=== PATIENT | female | born 1940 | race African-American/Black ===

== ENCOUNTER 2021-01-31 21:19 | Emergency (ER) | payer MEDICARE ==
[2021-01-31] MEDS ORDERED: Labetalol HCl 100 MG/20 ML VIAL ONE (23:06)
[2021-01-31 23:52] LABS: #Eosinphils 0.2 10x3/uL (0.0-0.5); #Monocytes 0.3 10x3/uL (0.0-1.1); #Neutrophils 2.9 10x3/uL (1.5-8.4); %Basophils 0.6 % (0.0-2.0); %Eosinophils 4.1 % (0.0-6.0); %Monocytes 6.2 % (0.0-10.0); %Neutrophils 55.9 % (40.0-75.0); Hemoglobin 10.5 g/dL (12.0-15.5); Mean Corpuscular HGB CONC 31.9 g/dL (32.0-36.0); Mean Corpuscular Hemoglobin 29.8 pg (27.0-33.0); Mean Corpuscular Volume 93.5 fl (81.6-98.3); Mean Platelet Volume 12.1 fl (7.4-10.4); Platelet Count 197 10x3/uL (150-450); RBC Distribution Width 13.8 % (11.5-14.5); Red Blood Cell (RBC) Count 3.52 10x6/uL (3.90-5.03); White Blood Cell (WBC) Count 5.2 10x3/uL (3.5-10.5)
[2021-02-01 00:02] LABS: ALT (SGPT) 24 U/L (8-55); AST (SGOT) 22 U/L (5-34); Albumin 3.5 g/dL (3.4-4.8); Alkaline Phosphatase 72 U/L (40-110); Anion Gap 12 mmol/L (10-20); BUN (Urea Nitrogen) 32 mg/dL (9.8-20.1); Bilirubin, Total 0.4 mg/dL (0.2-1.2); Calc. Creatinine Clearance 0 mL/min (70-130); Calcium 8.8 mg/dL (7.8-10.44); Carbon Dioxide 26 mmol/L (23-31); Chloride 106 mmol/L (98-107); Globulin 3.2 g/dL (2.4-3.5); Glucose 241 mg/dL (83-110); Potassium 3.6 mmol/L (3.5-5.1); Protein, Total 6.7 g/dL (5.8-8.1); Sodium 140 mmol/L (136-145)
[2021-02-01] MEDS ORDERED: hydrALAZINE 20 MG/ML VIAL ONE ×2 (01:06→01:07)
== END 2021-02-01 02:00 | disposition home or self-care (01) ==
LOC: CSHERS 21:19
DX: I10 Essential (primary) hypertension (principal); E11.9 Type 2 diabetes mellitus without complications; Z79.899 Other long term (current) drug therapy
CPT/HCPCS: 80053; 84484; 85025; 96374; 96375; J0360

== ENCOUNTER 2021-10-17 08:29 | Emergency (ER) | payer MEDICARE ==
[2021-10-17] MEDS ORDERED: predniSONE 20 MG TAB ONE (09:39)
[2021-10-17] MEDS ORDERED: Acetaminophen/Codeine 30-300mg Tablet ONE (09:39)
== END 2021-10-17 09:48 | disposition home or self-care (01) ==
LOC: CSHERS 08:29
DX: M10.9 Gout, unspecified (principal); I10 Essential (primary) hypertension; E11.9 Type 2 diabetes mellitus without complications
CPT/HCPCS: 99283; J7512

== ENCOUNTER 2021-11-08 16:47 | Emergency (ER) | payer MEDICARE ==
[2021-11-08 18:40] LABS: #Eosinphils 0.3 10x3/uL (0.0-0.5); #Monocytes 0.5 10x3/uL (0.0-1.1); #Neutrophils 3.4 10x3/uL (1.5-8.4); %Basophils 0.5 % (0.0-2.0); %Eosinophils 4.1 % (0.0-6.0); %Lymphocytes 32.1 % (18.0-47.0); %Monocytes 7.7 % (0.0-10.0); %Neutrophils 55.3 % (40.0-75.0); Hemoglobin 10.3 g/dL (12.0-15.5); Mean Corpuscular HGB CONC 30.9 g/dL (32.0-36.0); Mean Corpuscular Hemoglobin 29.9 pg (27.0-33.0); Mean Corpuscular Volume 96.8 fl (81.6-98.3); Mean Platelet Volume 12.1 fl (7.4-10.4); Platelet Count 206 10x3/uL (150-450); RBC Distribution Width 13.9 % (11.5-14.5); Red Blood Cell (RBC) Count 3.44 10x6/uL (3.90-5.03); White Blood Cell (WBC) Count 6.1 10x3/uL (3.5-10.5)
[2021-11-08 18:52] LABS: ALT (SGPT) 25 U/L (8-55); AST (SGOT) 19 U/L (5-34); Albumin 3.4 g/dL (3.4-4.8); Alkaline Phosphatase 76 U/L (40-110); Anion Gap 11 mmol/L (10-20); BUN (Urea Nitrogen) 24 mg/dL (9.8-20.1); Bilirubin, Total 0.3 mg/dL (0.2-1.2); Calc. Creatinine Clearance 0 mL/min (70-130); Calcium 8.8 mg/dL (7.8-10.44); Carbon Dioxide 24 mmol/L (23-31); Chloride 108 mmol/L (98-107); Globulin 3.9 g/dL (2.4-3.5); Glucose 166 mg/dL (83-110); Potassium 3.6 mmol/L (3.5-5.1); Protein, Total 7.3 g/dL (5.8-8.1); Sodium 139 mmol/L (136-145)
[2021-11-08] MEDS ORDERED: Metoclopramide HCl 10 MG/2 ML VIAL ONE (20:18)
[2021-11-08] MEDS ORDERED: diphenhydrAMINE 50 MG/ML VIAL ONE (20:19)
== END 2021-11-08 22:04 | disposition home or self-care (01) ==
LOC: CSHERS 16:47
DX: R51.9 Headache, unspecified (principal); I10 Essential (primary) hypertension; E11.9 Type 2 diabetes mellitus without complications
CPT/HCPCS: 70450; 80053; 85025; 93005; 96365; 96366; 96375; J1200; J2765

== ENCOUNTER 2022-01-25 12:43 | Emergency (ER) | payer MEDICARE, OTHER | END 2022-01-25 15:40 | disposition home or self-care (01) | LOC: CSHERS 12:43 | DX: S43.032A Inferior subluxation of left humerus, initial encounter (principal); S90.411A Abrasion, right great toe, initial encounter; S90.415A Abrasion, left lesser toe(s), initial encounter; M10.9 Gout, unspecified; I12.9 Hypertensive chronic kidney disease with stage 1 through stage 4 chronic kidney disease, or unspecified chronic kidney disease; E11.22 Type 2 diabetes mellitus with diabetic chronic kidney disease; N18.9 Chronic kidney disease, unspecified; E78.5 Hyperlipidemia, unspecified; E78.00 Pure hypercholesterolemia, unspecified; W01.0XXA Fall on same level from slipping, tripping and stumbling without subsequent striking against object, initial encounter | CPT/HCPCS: 36416 ==

== ENCOUNTER 2022-02-02 18:56 | Emergency (ER) | payer MEDICARE ==
[2022-02-02 22:02] LABS: #Eosinphils 0.3 10x3/uL (0.0-0.5); #Monocytes 0.5 10x3/uL (0.0-1.1); %Basophils 0.5 % (0.0-2.0); %Eosinophils 4.4 % (0.0-6.0); %Neutrophils 52.1 % (40.0-75.0); Hemoglobin 10.3 g/dL (12.0-15.5); Mean Corpuscular HGB CONC 31.2 g/dL (32.0-36.0); Mean Corpuscular Hemoglobin 29.8 pg (27.0-33.0); Mean Corpuscular Volume 95.4 fl (81.6-98.3); Mean Platelet Volume 11.6 fl (7.4-10.4); Platelet Count 227 10x3/uL (150-450); RBC Distribution Width 13.6 % (11.5-14.5); Red Blood Cell (RBC) Count 3.46 10x6/uL (3.90-5.03); White Blood Cell (WBC) Count 5.7 10x3/uL (3.5-10.5)
[2022-02-02 22:14] LABS: ALT (SGPT) 20 U/L (8-55); AST (SGOT) 16 U/L (5-34); Albumin 3.2 g/dL (3.4-4.8); Alkaline Phosphatase 78 U/L (40-110); Anion Gap 11 mmol/L (10-20); BUN (Urea Nitrogen) 28 mg/dL (9.8-20.1); Bilirubin, Total 0.3 mg/dL (0.2-1.2); Calc. Creatinine Clearance 0 mL/min (70-130); Calcium 8.7 mg/dL (7.8-10.44); Carbon Dioxide 26 mmol/L (23-31); Chloride 105 mmol/L (98-107); Globulin 3.9 g/dL (2.4-3.5); Glucose 240 mg/dL (83-110); Potassium 3.8 mmol/L (3.5-5.1); Protein, Total 7.1 g/dL (5.8-8.1); Sodium 138 mmol/L (136-145)
== END 2022-02-02 20:28 | disposition home or self-care (01) ==
LOC: CSHERS 18:56
DX: R05.9 Cough, unspecified (principal); I12.9 Hypertensive chronic kidney disease with stage 1 through stage 4 chronic kidney disease, or unspecified chronic kidney disease; N18.9 Chronic kidney disease, unspecified; E11.9 Type 2 diabetes mellitus without complications; E78.5 Hyperlipidemia, unspecified; M10.9 Gout, unspecified
CPT/HCPCS: 36415; 71045; 80053; 83880; 84484; 85025; 93005

== ENCOUNTER 2022-04-15 16:40 | Emergency (ER) | payer MEDICARE ==
[2022-04-15] MEDS ORDERED: Ibuprofen 200 MG TAB ONE (17:32)
== END 2022-04-15 18:11 | disposition home or self-care (01) ==
LOC: CSHERS 16:40
DX: J02.9 Acute pharyngitis, unspecified (principal)
CPT/HCPCS: 71045; 93005; J7620

== ENCOUNTER 2022-04-19 08:03 | Inpatient (IN) | payer MEDICARE, OTHER ==
[2022-04-19 08:59] LABS: #Eosinphils 0.2 10x3/uL (0.0-0.5); #Monocytes 0.5 10x3/uL (0.0-1.1); #Neutrophils 9.4 10x3/uL (1.5-8.4); %Basophils 0.4 % (0.0-2.0); %Lymphocytes 10.4 % (18.0-47.0); %Neutrophils 82.9 % (40.0-75.0); Hemoglobin 10.3 g/dL (12.0-15.5); Mean Corpuscular HGB CONC 32.3 g/dL (32.0-36.0); Mean Corpuscular Hemoglobin 30.3 pg (27.0-33.0); Mean Corpuscular Volume 93.8 fl (81.6-98.3); Mean Platelet Volume 11.8 fl (7.4-10.4); Platelet Count 220 10x3/uL (150-450); RBC Distribution Width 13.5 % (11.5-14.5); White Blood Cell (WBC) Count 11.3 10x3/uL (3.5-10.5)
[2022-04-19 09:17] LABS: ALT (SGPT) 21 U/L (8-55); AST (SGOT) 21 U/L (5-34); Albumin 3.4 g/dL (3.4-4.8); Alkaline Phosphatase 91 U/L (40-110); Anion Gap 17 mmol/L (10-20); BUN (Urea Nitrogen) 26 mg/dL (9.8-20.1); Bilirubin, Total 0.4 mg/dL (0.2-1.2); CK (CPK) 313 U/L (29-168); Calc. Creatinine Clearance 0 mL/min (70-130); Calcium 8.5 mg/dL (7.8-10.44); Carbon Dioxide 23 mmol/L (23-31); Chloride 103 mmol/L (98-107); Globulin 3.8 g/dL (2.4-3.5); Glucose 322 mg/dL (83-110); Potassium 3.8 mmol/L (3.5-5.1); Protein, Total 7.2 g/dL (5.8-8.1); Sodium 139 mmol/L (136-145)
[2022-04-19] MEDS ORDERED: cefTRIAXone\\ROCEPHIN 1 GM VIAL ONE (09:31)
[2022-04-19] MEDS ORDERED: Azithromycin 500 MG VIAL ONE (09:31)
[2022-04-19] MEDS ORDERED: Dextrose 5% in Water 1,000 ML IV PRN (10:05)
[2022-04-19] MEDS ORDERED: Dextrose 50% Abboject 50 ML SYRINGE SLOW IVP PRN (10:05)
[2022-04-19] MEDS ORDERED: GUAIFENESIN SF SOLN 200 MG/10 ML UDCUP PO PRN (10:20)
[2022-04-19 11:07] LABS: SARS-CoV-2 NAA Rapid Test Not Detected (NotDetected)
[2022-04-19 11:48] LABS: Hemoglobin A1c 9.4 % (4.0-6.0)
[2022-04-19] MEDS ORDERED: hydrALAZINE 20 MG/ML VIAL SLOW IVP PRN (15:27)
[2022-04-19] MEDS: Sodium Chloride 0.9% 1,000 ML IV SCH (16:02)
[2022-04-19] MEDS: Acetaminophen 325 MG TAB PO PRN (16:02)
[2022-04-19] MEDS: HumaLOG 300 UNITS/3 ML VIAL SC PRN ×2 (16:03→21:37)
[2022-04-19] MEDS: Benzonatate 100 MG CAP PO PRN (16:04)
[2022-04-19 18:28] LABS: Troponin I 0.014 ng/mL (< 0.028)
[2022-04-19] MEDS: hydrALAZINE 25 MG TAB PO SCH (21:36)
[2022-04-19] MEDS: NIFEdipine XL 60 MG TAB PO SCH (21:36)
[2022-04-19] MEDS: Heparin 5,000 UNITS/ML VIAL SC SCH (21:36)
[2022-04-19] MEDS: Atorvastatin Calcium 10 MG TAB PO SCH (21:36)
[2022-04-20 01:09] LABS: Bilirubin Neg (Negative); Blood, Urine 50 (Negative); Clarity Clear (Clear); Glucose, Urine (Dipstick) 50 mg/dL (Negative); Ketone, Urine Negative (Negative); Leukocyte Negative (Negative); Nitrite Negative (Negative); Protein, Urine (Dipstick) 100 mg/dl (Neg-Trace); Urobilinogen Normal mg/dL (Less than 2)
[2022-04-20 01:12] LABS: Urine Culture Reflex No No
[2022-04-20 01:17] LABS: Bacteria/HPF None Seen HPF (None Seen); Squamous Epithelial 0-3 HPF (0-3); WBC/HPF 0-3 HPF (0-3)
[2022-04-20 05:19] LABS: #Eosinphils 0.2 10x3/uL (0.0-0.5); #Monocytes 0.4 10x3/uL (0.0-1.1); #Neutrophils 7.1 10x3/uL (1.5-8.4); %Basophils 0.3 % (0.0-2.0); %Eosinophils 2.1 % (0.0-6.0); %Lymphocytes 18.5 % (18.0-47.0); %Monocytes 4.4 % (0.0-10.0); %Neutrophils 74.4 % (40.0-75.0); Hemoglobin 9.9 g/dL (12.0-15.5); Mean Corpuscular HGB CONC 32.7 g/dL (32.0-36.0); Mean Corpuscular Hemoglobin 30.4 pg (27.0-33.0); Mean Corpuscular Volume 92.9 fl (81.6-98.3); Mean Platelet Volume 11.5 fl (7.4-10.4); Platelet Count 192 10x3/uL (150-450); RBC Distribution Width 13.7 % (11.5-14.5); Red Blood Cell (RBC) Count 3.26 10x6/uL (3.90-5.03); White Blood Cell (WBC) Count 9.6 10x3/uL (3.5-10.5)
[2022-04-20 05:37] LABS: Anion Gap 13 mmol/L (10-20); BUN (Urea Nitrogen) 18 mg/dL (9.8-20.1); Calc. Creatinine Clearance 0 mL/min (70-130); Calcium 8.4 mg/dL (7.8-10.44); Carbon Dioxide 22 mmol/L (23-31); Chloride 106 mmol/L (98-107); Glucose 212 mg/dL (83-110); Potassium 3.2 mmol/L (3.5-5.1); Sodium 138 mmol/L (136-145)
[2022-04-20] MEDS: HumaLOG 300 UNITS/3 ML VIAL SC PRN ×3 (06:06→21:24)
[2022-04-20] MEDS ORDERED: Potassium Chloride 20 MEQ TAB PO SCH (07:45)
[2022-04-20] MEDS: Acetaminophen 325 MG TAB PO PRN ×2 (08:24→21:37)
[2022-04-20] MEDS: Benzonatate 100 MG CAP PO PRN (08:24)
[2022-04-20] MEDS: Sodium Chloride 0.9% 1,000 ML IV SCH (08:24)
[2022-04-20] MEDS: Heparin 5,000 UNITS/ML VIAL SC SCH ×2 (08:24→21:22)
[2022-04-20] MEDS: Calcitriol 0.25 MCG CAP PO SCH (08:24)
[2022-04-20] MEDS: hydrALAZINE 25 MG TAB PO SCH ×2 (08:24→21:21)
[2022-04-20] MEDS: cefTRIAXone\\ROCEPHIN 1 GM in Sodium Chloride 0.9% 100 ML IVPB SCH (08:31)
[2022-04-20] MEDS ORDERED: Sodium Chloride 0.9% 250 ML 250 ML ONE ×2 (09:21)
[2022-04-20] MEDS: Azithromycin 500 MG in Sodium Chloride 0.9% 250 ML 250 ML IVPB SCH (09:44)
[2022-04-20] MEDS: NIFEdipine XL 60 MG TAB PO SCH (21:21)
[2022-04-20] MEDS: HumuLIN 70/30 (300 UNITS/3 ML VIAL) SC SCH (21:22)
[2022-04-20] MEDS: Atorvastatin Calcium 10 MG TAB PO SCH (21:22)
[2022-04-20] MEDS ORDERED: guaiFENesin 100 MG/5 ML UDCUP PO PRN (21:42)
[2022-04-21 04:29] LABS: #Eosinphils 0.3 10x3/uL (0.0-0.5); #Monocytes 0.4 10x3/uL (0.0-1.1); #Neutrophils 5.6 10x3/uL (1.5-8.4); %Basophils 0.5 % (0.0-2.0); %Eosinophils 4.2 % (0.0-6.0); %Lymphocytes 21.3 % (18.0-47.0); %Monocytes 5.3 % (0.0-10.0); %Neutrophils 68.1 % (40.0-75.0); Hemoglobin 9.6 g/dL (12.0-15.5); Mean Corpuscular HGB CONC 31.9 g/dL (32.0-36.0); Mean Corpuscular Volume 94.1 fl (81.6-98.3); Mean Platelet Volume 11.5 fl (7.4-10.4); Platelet Count 223 10x3/uL (150-450); RBC Distribution Width 13.7 % (11.5-14.5); White Blood Cell (WBC) Count 8.1 10x3/uL (3.5-10.5)
[2022-04-21 04:56] LABS: Anion Gap 13 mmol/L (10-20); BUN (Urea Nitrogen) 16 mg/dL (9.8-20.1); Calc. Creatinine Clearance 34 mL/min (70-130); Calcium 8.4 mg/dL (7.8-10.44); Carbon Dioxide 24 mmol/L (23-31); Chloride 110 mmol/L (98-107); Glucose 96 mg/dL (83-110); Potassium 3.7 mmol/L (3.5-5.1); Sodium 143 mmol/L (136-145)
[2022-04-21] MEDS ORDERED: Artificial Tear Sol 15 ML BOT EA EYE PRN (05:19)
[2022-04-21] MEDS ORDERED: cefTRIAXone\\ROCEPHIN 1 GM VIAL ONE (08:55)
[2022-04-21] MEDS: Calcitriol 0.25 MCG CAP PO SCH (09:07)
[2022-04-21] MEDS: Heparin 5,000 UNITS/ML VIAL SC SCH ×2 (09:07→22:13)
[2022-04-21] MEDS: HumuLIN 70/30 (300 UNITS/3 ML VIAL) SC SCH ×2 (09:07→22:14)
[2022-04-21] MEDS: hydrALAZINE 25 MG TAB PO SCH ×2 (09:07→22:13)
[2022-04-21] MEDS: Benzonatate 100 MG CAP PO PRN (09:07)
[2022-04-21] MEDS: cefTRIAXone\\ROCEPHIN 1 GM in Sodium Chloride 0.9% 100 ML IVPB SCH (09:08)
[2022-04-21] MEDS: Azithromycin 500 MG in Sodium Chloride 0.9% 250 ML 250 ML IVPB SCH (10:30)
[2022-04-21] MEDS: HumaLOG 300 UNITS/3 ML VIAL SC PRN (12:29)
[2022-04-21] MEDS: NIFEdipine XL 60 MG TAB PO SCH (22:12)
[2022-04-21] MEDS: Atorvastatin Calcium 10 MG TAB PO SCH (22:13)
[2022-04-22 04:40] LABS: #Eosinphils 0.3 10x3/uL (0.0-0.5); #Monocytes 0.4 10x3/uL (0.0-1.1); #Neutrophils 4.8 10x3/uL (1.5-8.4); %Basophils 0.4 % (0.0-2.0); %Eosinophils 4.3 % (0.0-6.0); %Lymphocytes 24.7 % (18.0-47.0); %Monocytes 5.2 % (0.0-10.0); %Neutrophils 65.1 % (40.0-75.0); Hemoglobin 9.9 g/dL (12.0-15.5); Mean Corpuscular Hemoglobin 30.4 pg (27.0-33.0); Mean Corpuscular Volume 94.8 fl (81.6-98.3); Mean Platelet Volume 11.6 fl (7.4-10.4); Platelet Count 235 10x3/uL (150-450); RBC Distribution Width 13.8 % (11.5-14.5); Red Blood Cell (RBC) Count 3.26 10x6/uL (3.90-5.03); White Blood Cell (WBC) Count 7.4 10x3/uL (3.5-10.5)
[2022-04-22 04:51] LABS: Anion Gap 14 mmol/L (10-20); BUN (Urea Nitrogen) 14 mg/dL (9.8-20.1); Calc. Creatinine Clearance 33 mL/min (70-130); Carbon Dioxide 23 mmol/L (23-31); Chloride 106 mmol/L (98-107); Glucose 163 mg/dL (83-110); Potassium 3.7 mmol/L (3.5-5.1); Sodium 139 mmol/L (136-145)
[2022-04-22] MEDS: hydrALAZINE 25 MG TAB PO SCH (08:43)
[2022-04-22] MEDS: Heparin 5,000 UNITS/ML VIAL SC SCH (08:43)
[2022-04-22] MEDS: Calcitriol 0.25 MCG CAP PO SCH (08:43)
[2022-04-22] MEDS: HumuLIN 70/30 (300 UNITS/3 ML VIAL) SC SCH (08:43)
[2022-04-22] MEDS: cefTRIAXone\\ROCEPHIN 1 GM in Sodium Chloride 0.9% 100 ML IVPB SCH (08:43)
[2022-04-22] MEDS ORDERED: hydrALAZINE 25 MG TAB PO SCH ×2 (10:00→15:00)
[2022-04-22] MEDS: Azithromycin 500 MG in Sodium Chloride 0.9% 250 ML 250 ML IVPB SCH (10:35)
[2022-04-22 11:50] VITALS: BP 137/70; TEMP 97
[2022-04-22] MEDS: HumaLOG 300 UNITS/3 ML VIAL SC PRN (11:55)
== END 2022-04-22 14:06 | disposition home or self-care (01) | DRG 871 ==
LOC: CSHERS 08:03 → CSHTELE 13:02 → OBSVTOIN 14:46
PROVIDERS: ADMIT Family Medicine; ATTEND Physician Assistant Medical
DX: A41.9 Sepsis, unspecified organism (principal); J18.9 Pneumonia, unspecified organism; Z20.822 Contact with and (suspected) exposure to COVID-19; E11.22 Type 2 diabetes mellitus with diabetic chronic kidney disease; I12.9 Hypertensive chronic kidney disease with stage 1 through stage 4 chronic kidney disease, or unspecified chronic kidney disease; E11.65 Type 2 diabetes mellitus with hyperglycemia; D63.1 Anemia in chronic kidney disease; E78.5 Hyperlipidemia, unspecified; E87.6 Hypokalemia; N18.30 Chronic kidney disease, stage 3 unspecified; E78.00 Pure hypercholesterolemia, unspecified; M10.9 Gout, unspecified; Z88.0 Allergy status to penicillin; Z79.899 Other long term (current) drug therapy; Z79.4 Long term (current) use of insulin
CPT/HCPCS: 36415; 36416; 71045; 80048; 80053; 81001; 82550; 83036; 83605; 83880; 84484; 85025; 87040; 87070; 87205; 87804; 93005; 94760; 94799; 96365; 96375; G0378; J0360; J0456; J0696; J1644; J1815; J3490; J7050; U0002

== ENCOUNTER 2022-07-26 00:39 | Emergency (ER) | payer OTHER ==
[2022-07-26] MEDS ORDERED: Dextrose 50% Abboject 50 ML SYRINGE ONE ×2 (00:47)
[2022-07-26 01:26] LABS: #Eosinphils 0.5 10x3/uL (0.0-0.5); #Monocytes 0.7 10x3/uL (0.0-1.1); #Neutrophils 4.3 10x3/uL (1.5-8.4); %Basophils 0.3 % (0.0-2.0); %Eosinophils 6.4 % (0.0-6.0); %Lymphocytes 30.6 % (18.0-47.0); %Monocytes 8.7 % (0.0-10.0); %Neutrophils 53.7 % (40.0-75.0); Mean Corpuscular HGB CONC 32.2 g/dL (32.0-36.0); Mean Corpuscular Hemoglobin 30.2 pg (27.0-33.0); Mean Platelet Volume 11.5 fl (7.4-10.4); Platelet Count 238 10x3/uL (150-450); RBC Distribution Width 14.9 % (11.5-14.5); Red Blood Cell (RBC) Count 3.64 10x6/uL (3.90-5.03)
[2022-07-26 01:33] LABS: ALT (SGPT) 24 U/L (8-55); AST (SGOT) 29 U/L (5-34); Albumin 3.9 g/dL (3.4-4.8); Alkaline Phosphatase 157 U/L (40-110); Anion Gap 17 mmol/L (10-20); BUN (Urea Nitrogen) 29 mg/dL (9.8-20.1); Bilirubin, Total 0.7 mg/dL (0.2-1.2); Calc. Creatinine Clearance 0 mL/min (70-130); Calcium 9.7 mg/dL (7.8-10.44); Carbon Dioxide 19 mmol/L (23-31); Chloride 110 mmol/L (98-107); Estimated GFR 21; Globulin 4.2 g/dL (2.4-3.5); Protein, Total 8.1 g/dL (5.8-8.1); Sodium 142 mmol/L (136-145)
[2022-07-26 01:42] LABS: Glucose 23 mg/dL (83-110)
== END 2022-07-26 02:10 | disposition home or self-care (01) ==
LOC: CSHERS 00:39
DX: E11.649 Type 2 diabetes mellitus with hypoglycemia without coma (principal); E78.00 Pure hypercholesterolemia, unspecified; I12.9 Hypertensive chronic kidney disease with stage 1 through stage 4 chronic kidney disease, or unspecified chronic kidney disease; N18.9 Chronic kidney disease, unspecified; M10.9 Gout, unspecified; Z79.82 Long term (current) use of aspirin; Z79.899 Other long term (current) drug therapy
CPT/HCPCS: 36416; 80053; 85025; 93005; 94760; 96361; 96374; J7999

== ENCOUNTER 2023-02-13 01:09 | Emergency (ER) | payer MEDICARE, OTHER | END 2023-02-13 01:39 | disposition home or self-care (01) | LOC: CSHERS 01:09 | DX: Z76.0 Encounter for issue of repeat prescription (principal); E78.5 Hyperlipidemia, unspecified; E11.22 Type 2 diabetes mellitus with diabetic chronic kidney disease; N18.9 Chronic kidney disease, unspecified; I12.9 Hypertensive chronic kidney disease with stage 1 through stage 4 chronic kidney disease, or unspecified chronic kidney disease; Z79.82 Long term (current) use of aspirin; Z79.899 Other long term (current) drug therapy | CPT/HCPCS: 36416; 99281 ==

== ENCOUNTER 2024-06-11 08:13 | Inpatient (IN) | payer MEDICARE, SELFPAY ==
[2024-06-11] MEDS ORDERED: Acetaminophen 500 MG TAB ONE (09:28)
[2024-06-11 10:05] LABS: #Basophils 0.01 10x3/uL (0.0-0.2); #Eosinphils 0.29 10x3/uL (0.0-0.5); #Monocytes 0.47 10x3/uL (0.0-1.1); #Neutrophils 9.86 10x3/uL (1.5-8.4); %Basophils 0.1 % (0.0-2.0); %Eosinophils 2.6 % (0.0-6.0); %Lymphocytes 5.1 % (18.0-47.0); %Monocytes 4.2 % (0.0-10.0); %Neutrophils 87.7 % (40.0-75.0); ALT (SGPT) 42 U/L (8-55); AST (SGOT) 49 U/L (5-34); Albumin 3.3 g/dL (3.4-4.8); Alkaline Phosphatase 82 U/L (40-110); Anion Gap 14 mmol/L (10-20); BUN (Urea Nitrogen) 38 mg/dL (9.8-20.1); Bilirubin, Total 0.6 mg/dL (0.2-1.2); Calc. Creatinine Clearance 0 mL/min (70-130); Calcium 9.3 mg/dL (7.8-10.44); Carbon Dioxide 20 mmol/L (23-31); Chloride 109 mmol/L (98-107); Estimated GFR 16; Globulin 4.1 g/dL (2.4-3.5); Glucose 237 mg/dL (83-110); Hematocrit 35.6 % (34.9-44.5); Hemoglobin 11.5 g/dL (12.0-15.5); Magnesium 1.7 mg/dL (1.6-2.6); Mean Corpuscular HGB CONC 32.3 g/dL (32.0-36.0); Mean Corpuscular Hemoglobin 29.9 pg (27.0-33.0); Mean Corpuscular Volume 92.5 fL (81.6-98.3); Mean Platelet Volume 12.2 fL (7.4-10.4); Platelet Count 233 10x3/uL (150-450); Potassium 4.9 mmol/L (3.5-5.1); Protein, Total 7.4 g/dL (5.8-8.1); RBC Distribution Width 14.7 % (11.5-14.5); Red Blood Cell (RBC) Count 3.85 10x6/uL (3.90-5.03); Sodium 138 mmol/L (136-145); White Blood Cell (WBC) Count 11.2 10x3/uL (3.5-10.5)
[2024-06-11] MEDS ORDERED: Loperamide HCl 2 MG CAP PO PRN (11:22)
[2024-06-11] MEDS ORDERED: Acetaminophen 325 MG TAB PO PRN (11:22)
[2024-06-11] MEDS ORDERED: Senokot S 8.6-50 MG TAB PO PRN (11:22)
[2024-06-11] MEDS ORDERED: Dextrose 50% Abboject 50 ML SYRINGE SLOW IVP PRN (11:41)
[2024-06-11] MEDS ORDERED: Glucagon 1 MG/ML KIT IM PRN (11:41)
[2024-06-11] MEDS ORDERED: Dextrose 5% in Water 1,000 ML IV PRN (11:41)
[2024-06-11] MEDS: Sodium Chloride 0.9% 1,000 ML IV SCH (13:21)
[2024-06-11 13:48] LABS: Influenza A by NAA Not Detected (NotDetected); Influenza B by NAA Not Detected (NotDetected); RSV by NAA Not Detected (NotDetected); SARS-CoV-2 NAA Rapid Test Not Detected (NotDetected)
[2024-06-11] MEDS: HumaLOG 300 UNITS/3 ML VIAL SC PRN (13:53)
[2024-06-11] MEDS: HYDROcodone/Acetaminophen 5/325 mg Tablet PO PRN (13:53)
[2024-06-11] MEDS: Famotidine 20 MG TAB PO SCH (20:25)
[2024-06-12] MEDS: traMADol HCl 50 MG TAB PO PRN (00:04)
[2024-06-12 05:04] LABS: #Eosinphils 0.14 10x3/uL (0.0-0.5); #Monocytes 0.42 10x3/uL (0.0-1.1); #Neutrophils 3.71 10x3/uL (1.5-8.4); %Eosinophils 2.8 % (0.0-6.0); %Lymphocytes 15.6 % (18.0-47.0); %Monocytes 8.3 % (0.0-10.0); %Neutrophils 73.1 % (40.0-75.0); Hematocrit 28.9 % (34.9-44.5); Hemoglobin 9.4 g/dL (12.0-15.5); Mean Corpuscular HGB CONC 32.5 g/dL (32.0-36.0); Mean Corpuscular Volume 92.3 fL (81.6-98.3); Platelet Count 204 10x3/uL (150-450); RBC Distribution Width 14.8 % (11.5-14.5); Red Blood Cell (RBC) Count 3.13 10x6/uL (3.90-5.03); White Blood Cell (WBC) Count 5.1 10x3/uL (3.5-10.5)
[2024-06-12 05:06] VITALS: BMI 32.2
[2024-06-12 05:08] LABS: Bilirubin Neg (Negative); Blood, Urine Negative (Negative); Clarity Clear (Clear); Glucose, Urine (Dipstick) Normal (Negative); Ketone, Urine Negative (Negative); Leukocyte 25 (Negative); Nitrite Negative (Negative); Protein, Urine (Dipstick) 100 mg/dl (Neg-Trace); Urobilinogen Normal mg/dL (Less than 2)
[2024-06-12 05:23] LABS: CAUTI Indications for Culture Alt mental st,lethar; RBC/HPF None Seen HPF (0-3)
[2024-06-12 05:24] LABS: Bacteria/HPF 4+ HPF (None Seen); Squamous Epithelial 0-3 HPF (0-3)
[2024-06-12 05:25] LABS: Urine Culture Reflex No No
[2024-06-12 05:53] LABS: ALT (SGPT) 25 U/L (8-55); AST (SGOT) 23 U/L (5-34); Albumin 2.7 g/dL (3.4-4.8); Alkaline Phosphatase 64 U/L (40-110); Anion Gap 11 mmol/L (10-20); BUN (Urea Nitrogen) 33 mg/dL (9.8-20.1); Bilirubin, Total 0.6 mg/dL (0.2-1.2); Calc. Creatinine Clearance 24 mL/min (70-130); Calcium 7.9 mg/dL (7.8-10.44); Carbon Dioxide 18 mmol/L (23-31); Chloride 111 mmol/L (98-107); Estimated GFR 21; Globulin 3.4 g/dL (2.4-3.5); Glucose 140 mg/dL (83-110); Potassium 4.1 mmol/L (3.5-5.1); Protein, Total 6.1 g/dL (5.8-8.1); Sodium 136 mmol/L (136-145)
[2024-06-12] MEDS: Magnesium 2 GM/50 ML(in water) 2 GM in Premix 1 BAG IVPB SCH (09:34)
[2024-06-12] MEDS ORDERED: Nitroglycerin 0.4 MG TAB (25 Tab Bottle) SL PRN (16:55)
[2024-06-12] MEDS ORDERED: Atropine Sulfate 1 mg/1 ml Vial IVP PRN (16:57)
[2024-06-12] MEDS ORDERED: hydrALAZINE 20 MG/ML VIAL SLOW IVP PRN (19:39)
[2024-06-12] MEDS: Saccharomyces boulardii 250 MG CAP PO SCH (21:00)
[2024-06-12] MEDS: Gabapentin 300 MG CAP PO SCH (21:53)
[2024-06-12] MEDS: NIFEdipine XL 30 MG ER.TAB PO SCH (21:53)
[2024-06-12] MEDS: Acetaminophen 325 MG TAB PO SCH (21:54)
[2024-06-12] MEDS: Heparin 5,000 UNITS/ML VIAL SC SCH (21:54)
[2024-06-12] MEDS: Ciprofloxacin 500 MG TAB PO SCH (22:16)
[2024-06-13 04:09] LABS: #Basophils 0.01 10x3/uL (0.0-0.2); #Eosinphils 0.18 10x3/uL (0.0-0.5); #Monocytes 0.51 10x3/uL (0.0-1.1); #Neutrophils 1.95 10x3/uL (1.5-8.4); %Basophils 0.2 % (0.0-2.0); %Eosinophils 4.3 % (0.0-6.0); %Lymphocytes 36.8 % (18.0-47.0); %Monocytes 12.1 % (0.0-10.0); %Neutrophils 46.4 % (40.0-75.0); Hemoglobin 9.4 g/dL (12.0-15.5); Mean Corpuscular HGB CONC 33.6 g/dL (32.0-36.0); Mean Corpuscular Hemoglobin 30.8 pg (27.0-33.0); Mean Corpuscular Volume 91.8 fL (81.6-98.3); Mean Platelet Volume 12.1 fL (7.4-10.4); Platelet Count 189 10x3/uL (150-450); RBC Distribution Width 14.7 % (11.5-14.5); Red Blood Cell (RBC) Count 3.05 10x6/uL (3.90-5.03); White Blood Cell (WBC) Count 4.2 10x3/uL (3.5-10.5)
[2024-06-13 04:45] LABS: Anion Gap 10 mmol/L (10-20); BUN (Urea Nitrogen) 28 mg/dL (9.8-20.1); Calc. Creatinine Clearance 26 mL/min (70-130); Carbon Dioxide 19 mmol/L (23-31); Chloride 112 mmol/L (98-107); Estimated GFR 23; Glucose 121 mg/dL (83-110); Potassium 3.9 mmol/L (3.5-5.1); Sodium 137 mmol/L (136-145)
[2024-06-13] MEDS ORDERED: hydrALAZINE 25 MG TAB PO SCH (08:00)
[2024-06-13] MEDS: Aspirin 81 mg Enteric Coated Tablet PO SCH (09:32)
[2024-06-13] MEDS: Calcitriol 0.25 MCG CAP PO SCH (09:33)
[2024-06-13] MEDS: hydrALAZINE 25 MG TAB PO SCH ×2 (09:33→17:23)
[2024-06-13] MEDS: NIFEdipine XL 90 MG ER.TAB PO SCH (09:33)
[2024-06-13 09:55] VITALS: BMI 31.8
[2024-06-13 10:11] LABS: Magnesium 1.9 mg/dL (1.6-2.6)
[2024-06-13] MEDS: Magnesium 2 GM/50 ML(in water) 2 GM in Premix 1 BAG IVPB SCH (12:46)
[2024-06-13] MEDS: Magnesium Oxide 400 MG TAB PO SCH (12:47)
[2024-06-13] MEDS: Acetaminophen 325 MG TAB PO PRN (17:23)
[2024-06-14 04:52] LABS: #Basophils 0.02 10x3/uL (0.0-0.2); #Monocytes 0.29 10x3/uL (0.0-1.1); #Neutrophils 1.57 10x3/uL (1.5-8.4); %Basophils 0.5 % (0.0-2.0); %Eosinophils 7.5 % (0.0-6.0); %Lymphocytes 45.3 % (18.0-47.0); %Monocytes 7.3 % (0.0-10.0); %Neutrophils 39.1 % (40.0-75.0); Hematocrit 30.2 % (34.9-44.5); Hemoglobin 10.1 g/dL (12.0-15.5); Mean Corpuscular HGB CONC 33.4 g/dL (32.0-36.0); Mean Corpuscular Hemoglobin 30.7 pg (27.0-33.0); Mean Corpuscular Volume 91.8 fL (81.6-98.3); Mean Platelet Volume 11.9 fL (7.4-10.4); Platelet Count 212 10x3/uL (150-450); RBC Distribution Width 14.8 % (11.5-14.5); Red Blood Cell (RBC) Count 3.29 10x6/uL (3.90-5.03)
[2024-06-14 05:04] LABS: Anion Gap 11 mmol/L (10-20); BUN (Urea Nitrogen) 26 mg/dL (9.8-20.1); Calc. Creatinine Clearance 22 mL/min (70-130); Calcium 8.5 mg/dL (7.8-10.44); Carbon Dioxide 20 mmol/L (23-31); Chloride 112 mmol/L (98-107); Estimated GFR 20; Glucose 164 mg/dL (83-110); Magnesium 2.5 mg/dL (1.6-2.6); Sodium 139 mmol/L (136-145)
[2024-06-14] MEDS: Magnesium Oxide 400 MG TAB PO SCH (09:28)
[2024-06-14 11:12] VITALS: BP 157/77; TEMP 97.8
[2024-06-14] MEDS: Ciprofloxacin 500 MG TAB PO SCH (11:15)
[2024-06-15] MEDS ORDERED: Rosuvastatin 10 MG TAB PO SCH (09:00)
== END 2024-06-14 11:43 | disposition home health service (06) | DRG 683 ==
LOC: CSHERS 08:13 → CSHTELE 11:06 → OBSVTOIN 06-13 11:01
PROVIDERS: ADMIT Internal Medicine; ATTEND Internal Medicine
DX: N17.9 Acute kidney failure, unspecified (principal); E87.20 Acidosis, unspecified; N39.0 Urinary tract infection, site not specified; A08.4 Viral intestinal infection, unspecified; N18.4 Chronic kidney disease, stage 4 (severe); M10.9 Gout, unspecified; I13.10 Hypertensive heart and chronic kidney disease without heart failure, with stage 1 through stage 4 chronic kidney disease, or unspecified chronic kidney disease; E11.22 Type 2 diabetes mellitus with diabetic chronic kidney disease; E78.5 Hyperlipidemia, unspecified; I44.0 Atrioventricular block, first degree; D63.1 Anemia in chronic kidney disease; E83.42 Hypomagnesemia; R53.81 Other malaise; Z96.651 Presence of right artificial knee joint; Z79.4 Long term (current) use of insulin; Z88.0 Allergy status to penicillin; Z79.82 Long term (current) use of aspirin; Z79.899 Other long term (current) drug therapy; Z98.890 Other specified postprocedural states; Z68.32 Body mass index [BMI] 32.0-32.9, adult
CPT/HCPCS: 0241U; 36415; 36416; 70450; 71045; 72125; 80048; 80053; 81001; 83735; 84443; 85025; 93005; 93306; 96360; 96372; 96374; G0378; J1644; J1815; J3475; J7050

== ENCOUNTER 2024-06-21 20:57 | Emergency (ER) | payer MEDICARE ==
[2024-06-21] MEDS ORDERED: Acetaminophen/Codeine 30-300mg Tablet ONE (21:58)
== END 2024-06-21 23:10 | disposition home or self-care (01) ==
LOC: CSHERS 20:57
DX: R51.9 Headache, unspecified (principal); I12.9 Hypertensive chronic kidney disease with stage 1 through stage 4 chronic kidney disease, or unspecified chronic kidney disease; E11.22 Type 2 diabetes mellitus with diabetic chronic kidney disease; N18.9 Chronic kidney disease, unspecified
CPT/HCPCS: 70450; 72125

== ENCOUNTER 2024-11-08 11:31 | Emergency (ER) | payer MEDICARE | END 2024-11-08 12:35 | disposition home or self-care (01) | LOC: CSHERS 11:31 | DX: M19.042 Primary osteoarthritis, left hand (principal); I12.9 Hypertensive chronic kidney disease with stage 1 through stage 4 chronic kidney disease, or unspecified chronic kidney disease; E11.22 Type 2 diabetes mellitus with diabetic chronic kidney disease; N18.9 Chronic kidney disease, unspecified | CPT/HCPCS: 99283 ==

== ENCOUNTER 2024-12-27 16:39 | Emergency (ER) | payer MEDICARE ==
[2024-12-27] MEDS ORDERED: Acetaminophen 500 MG TAB ONE (17:31)
[2024-12-27 18:03] LABS: #Basophils 0.03 10x3/uL (0.0-0.2); #Eosinophils 0.36 10x3/uL (0.0-0.5); #Monocytes 0.34 10x3/uL (0.0-1.1); #Neutrophils 2.79 10x3/uL (1.5-8.4); %Basophils 0.5 % (0.0-2.0); %Eosinophils 6.3 % (0.0-6.0); %Lymphocytes 38.7 % (18.0-47.0); %Monocytes 5.9 % (0.0-10.0); %Neutrophils 48.4 % (40.0-75.0); Hematocrit 32.4 % (34.9-44.5); Hemoglobin 10.2 g/dL (12.0-15.5); Mean Corpuscular HGB CONC 31.5 g/dL (32.0-36.0); Mean Corpuscular Hemoglobin 29.4 pg (27.0-33.0); Mean Corpuscular Volume 93.4 fL (81.6-98.3); Mean Platelet Volume 11.4 fL (7.4-10.4); Platelet Count 184 10x3/uL (150-450); Red Blood Cell (RBC) Count 3.47 10x6/uL (3.90-5.03); White Blood Cell (WBC) Count 5.76 10x3/uL (3.5-10.5)
[2024-12-27 18:26] LABS: ALT (SGPT) 95 U/L (Less than 34); AST (SGOT) 51 U/L (11-34); Albumin 3.5 g/dL (3.1-4.5); Alkaline Phosphatase 78 U/L (40-110); Anion Gap 12 mmol/L (10-20); BUN (Urea Nitrogen) 39 mg/dL (9.8-20.1); Bilirubin, Total 0.4 mg/dL (0.3-1.2); Calc. Creatinine Clearance 0 mL/min (70-130); Calcium 9.2 mg/dL (7.8-10.44); Carbon Dioxide 20 mmol/L (23-31); Chloride 113 mmol/L (98-107); Estimated GFR 16; Globulin 3.8 g/dL (2.4-3.5); Glucose 201 mg/dL (83-110); Lipase 25 U/L (8-78); Potassium 4.3 mmol/L (3.5-5.1); Protein, Total 7.3 g/dL (5.8-8.1); Sodium 141 mmol/L (136-145)
[2024-12-27 21:54] LABS: Bilirubin Neg (Negative); Blood, Urine Negative (Negative); Clarity Cloudy (Clear); Glucose, Urine (Dipstick) Normal (Negative); Ketone, Urine Negative (Negative); Leukocyte 500 (Negative); Nitrite Negative (Negative); Protein, Urine (Dipstick) 100 mg/dl (Neg-Trace); Specific Gravity, Urine 1.015 (1.005-1.030); Urobilinogen Normal mg/dL (Less than 2)
[2024-12-27] MEDS ORDERED: Morphine 2 MG/ML VIAL ONE (22:10)
[2024-12-27 22:12] LABS: Bacteria/HPF 3+ HPF (None Seen); CAUTI Indications for Culture Pelvic or flank pain; RBC/HPF 0-3 HPF (0-3)
[2024-12-27 22:13] LABS: Mucous/LPF 2+ LPF (<2+); Transitional Epithelial 0-3 HPF (None Seen)
[2024-12-27 22:14] LABS: WBC/HPF 21-50 HPF (0-3)
[2024-12-27 22:17] LABS: Urine Culture Reflex Yes Yes
[2024-12-27] MEDS ORDERED: cefTRIAXone (ROCEPHIN) 1 GM VIAL ONE ×2 (22:43→22:56)
[2024-12-27] MEDS ORDERED: Sterile Water 10 ML ONE (22:56)
== END 2024-12-27 23:22 | disposition home or self-care (01) ==
LOC: CSHERS 16:39
DX: K29.00 Acute gastritis without bleeding (principal); N39.0 Urinary tract infection, site not specified; I12.9 Hypertensive chronic kidney disease with stage 1 through stage 4 chronic kidney disease, or unspecified chronic kidney disease; E11.22 Type 2 diabetes mellitus with diabetic chronic kidney disease; N18.9 Chronic kidney disease, unspecified
CPT/HCPCS: 74176; 76705; 80053; 81001; 83690; 85025; 87086; J0696; J2272; 36415; 87077; 96374

== ENCOUNTER 2025-01-24 11:54 | Outpatient (CLI) | payer MEDICARE ==
[2025-01-24 14:04] LABS: Hematocrit 33.3 % (34.9-44.5); Hemoglobin 9.9 g/dL (12.0-15.5); Mean Corpuscular HGB CONC 29.7 g/dL (32.0-36.0); Mean Corpuscular Hemoglobin 28.7 pg (27.0-33.0); Mean Corpuscular Volume 96.5 fL (81.6-98.3); Mean Platelet Volume 12.4 fL (7.4-10.4); Platelet Count 204 10x3/uL (150-450); RBC Distribution Width 13.5 % (11.5-14.5); Red Blood Cell (RBC) Count 3.45 10x6/uL (3.90-5.03); White Blood Cell (WBC) Count 5.65 10x3/uL (3.5-10.5)
[2025-01-24 14:19] LABS: Anion Gap 12 mmol/L (10-20); BUN (Urea Nitrogen) 42 mg/dL (9.8-20.1); Calc. Creatinine Clearance 0 mL/min (70-130); Calcium 8.9 mg/dL (7.8-10.44); Carbon Dioxide 21 mmol/L (23-31); Chloride 110 mmol/L (98-107); Estimated GFR 16; Glucose 242 mg/dL (83-110); Potassium 4.4 mmol/L (3.5-5.1); Sodium 139 mmol/L (136-145)
== END 2025-01-24 11:55 | disposition home or self-care (01) ==
LOC: CSHLAB 11:54
PROVIDERS: ATTEND Surgery
DX: Z01.818 Encounter for other preprocedural examination (principal); N18.4 Chronic kidney disease, stage 4 (severe)
CPT/HCPCS: 80048; 85027; 93005; 93010

== ENCOUNTER 2025-01-26 06:22 | Day surgery (SDC) | payer MEDICARE ==
[2025-01-24 12:11] VITALS: BMI 30.7
[2025-01-26] MEDS ORDERED: PROPOFOL 20 ML ONE (07:53)
[2025-01-26] MEDS ORDERED: Fentanyl 100 MCG/2 ML VIAL ONE (07:53)
[2025-01-26] MEDS ORDERED: Lidocaine 2% PF 5 ML VIAL ONE (07:53)
[2025-01-26] MEDS ORDERED: Ondansetron PF 4 MG/2 ML Vial ONE (07:53)
[2025-01-26] MEDS ORDERED: Dexamethasone 4 mg/ml Vial ONE (07:53)
[2025-01-26] MEDS ORDERED: Bupivacaine/Epinephrine 0.25% 30 ML VIAL ONE (08:09)
[2025-01-26] MEDS ORDERED: Clindamycin/D5W 600 mg/50 ml Premix Bag ONE (08:18)
[2025-01-26] MEDS ORDERED: HYDROcodone/Acetaminophen 5/325 mg Tablet ONE (10:46)
== END 2025-01-26 11:05 | disposition home or self-care (01) ==
LOC: CSHSDC 06:22
PROVIDERS: ATTEND Surgery
PROC: 05HM33Z Insertion of Infusion Device into Right Internal Jugular Vein, Percutaneous Approach (ICD-10-PCS; principal; 2025-01-26)
DX: I12.9 Hypertensive chronic kidney disease with stage 1 through stage 4 chronic kidney disease, or unspecified chronic kidney disease (principal); N18.4 Chronic kidney disease, stage 4 (severe); E11.22 Type 2 diabetes mellitus with diabetic chronic kidney disease; E11.40 Type 2 diabetes mellitus with diabetic neuropathy, unspecified; E78.5 Hyperlipidemia, unspecified; I25.10 Atherosclerotic heart disease of native coronary artery without angina pectoris; K21.9 Gastro-esophageal reflux disease without esophagitis; M19.90 Unspecified osteoarthritis, unspecified site; Z78.0 Asymptomatic menopausal state; Z98.890 Other specified postprocedural states; Z88.0 Allergy status to penicillin; Z79.4 Long term (current) use of insulin; Z79.51 Long term (current) use of inhaled steroids; Z79.899 Other long term (current) drug therapy
CPT/HCPCS: 36558; 82962; J1100; J2405; J2704; J3010; J3490; 36416; C1750; C1752; J1642